=== PATIENT | male | born 1995 | race American Indian/Alaskan Native ===

== ENCOUNTER 2020-11-16 23:01 | Emergency (ER) | payer BC, MEDICAID ==
[2020-11-17 02:29] VITALS: BP 120/75
[2020-11-17 03:52] LABS: Hematocrit 46.5 % (35.5-45.6); Hemoglobin 15.7 gm/dl (11.8-15.2); Mean Corpuscular HGB Conc 34 % (32-34); Mean Corpuscular Volume 95 fl (84-94); Platelet Count 193 K/mm3 (140-440); Red Blood Count 4.91 M/mm3 (3.65-5.03); Red Cell Distribution Width 12.8 % (13.2-15.2)
[2020-11-17 04:00] LABS: Alanine Aminotransferase 16 units/L (7-56); Albumin 5.3 g/dL (3.9-5); BUN/Creatinine Ratio 20; Blood Urea Nitrogen 18 mg/dL (9-20); Calcium 10.7 mg/dL (8.4-10.2); Hemolysis Index 25
[2020-11-17 04:21] LABS: Bilirubin,Urine NEG (Negative); Blood,Urine NEG (Negative); Color,Urine Yellow (Yellow); Mucus,Urine FEW /HPF; Protein,Urine <15 mg/dL mg/dL (Negative); Urobilinogen,Urine < 2.0 mg/dL (<2.0); WBC,Urine < 1.0 /HPF (0.0-6.0)
--- NOTE | 2020-11-17 04:29 | Ultrasound Report ---
ULTRASOUND SCROTUM INDICATION: Bilateral scrotal pain, left greater than right, for one month. COMPARISON None available. FINDINGS: RIGHT TESTICLE: 4.3 x 2.1 x 2.8 cm. Normal echogenicity. Normal color flow. No solid or cystic lesion s. RIGHT EPIDIDYMIS: 1.2 x 1.0 cm. No significant abnormality. LEFT TESTICLE: 4.4 x 2.6 x 3.6 cm. Normal echogenicity. Normal color flow. No solid or cystic lesions . LEFT EPIDIDYMIS: 1.4 x 1.2 cm. No significant abnormality. HYDROCELE: None seen. VARICOCELE: None seen. ADDITIONAL FINDINGS: None. IMPRESSION: 1. No sonographic abnormality of the testes/scrotum. Signer Name: Juan Miramontes MD Signed: 11/17/2020 4:25 AM Workstation Name: [id number]
[2020-11-17 04:48] LABS: RBC Morphology Normal; Total Cells Counted 100
--- NOTE | 2020-11-17 05:25 | Emergency Department Report ---
ED Abdominal Pain HPI - General Chief Complaint: Abdominal Pain Stated Complaint: ABD PAIN Source: patient Mode of arrival: Ambulatory Limitations: No Limitations - History of Present Illness Initial Comments: Patient is a 24-year-old -[place] male with no past medical history presents to the ED with complaint of acute onset persistent mild suprapubic pain with left testicular pain for the last 2 hours. Patient states that he was laying down when he got up and started experiencing left testicular pain and suprapubic pressure. Patient denies hematuria, heavy lifting, fall, traumatic injury, dysuria, urinary frequency and urgency, penile discharge, dizziness, syncope, fever, chills, back pain, chest pain or shortness of breath, nausea and vomiting. MD Complaint: abdominal pain, other (Left testicle pain) -: Sudden, hour(s) (2) Location: periumbilical Radiation: none Migration to: no migration Severity: mild Severity scale (0 -10): 2 Quality: other (chest tightness) Consistency: now resolved Improves With: nothing Worsens With: nothing Associated Symptoms: denies other symptoms. denies: nausea, vomiting, diarrhea, fever, constipation, dysuria, hematemesis, melena, hematuria, anorexia, syncope - Related Data Previous Rx's Medication Instructions Recorded Last Taken Type Naproxen 500 mg PO Q12H PRN #24 tablet 11/17/20 Unknown Rx Allergies Allergy/AdvReac Type Severity Reaction Status Date / Time No Known Allergies Allergy Unverified 11/17/20 02:28 ED Review of Systems ROS: Stated complaint: ABD PAIN Other details as noted in HPI Constitutional: denies: chills, fever Eyes: denies: eye pain, eye discharge, vision change ENT: denies: ear pain, throat pain Respiratory: denies: cough, shortness of breath, wheezing Cardiovascular: denies: chest pain, palpitations Endocrine: no symptoms reported Gastrointestinal: abdominal pain (Suprapubic pain), other. denies: nausea, vomiting, diarrhea Genitourinary: testicular pain (left testicular pain). denies: urgency, dysuria, frequency, hematuria, discharge Musculoskeletal: denies: back pain, joint swelling, arthralgia Skin: denies: rash, lesions Neurological: denies: headache, weakness, paresthesias Psychiatric: denies: anxiety, depression Hematological/Lymphatic: denies: easy bleeding, easy bruising ED Past Medical Hx - Past Medical History Previous Medical History?: No - Surgical History Past Surgical History?: No - Social History Smoking Status: Former Smoker Substance Use Type: Alcohol, Marijuana - Medications Home Medications: Home Medications Medication Instructions Recorded Confirmed Last Taken Type Naproxen 500 mg PO Q12H PRN #24 tablet 11/17/20 Unknown Rx ED Physical Exam - General Limitations: No Limitations General appearance: alert, in no apparent distress - Head Head exam: Present: atraumatic, normocephalic, normal inspection - Eye Eye exam: Present: normal appearance, PERRL, EOMI Pupils: Present: normal accommodation - ENT ENT exam: Present: normal exam, normal orophraynx, mucous membranes moist, TM's normal bilaterally, normal external ear exam - Neck Neck exam: Present: normal inspection, full ROM - Respiratory Respiratory exam: Present: normal lung sounds bilaterally. Absent: respiratory distress, wheezes, rales, rhonchi, chest wall tenderness, accessory muscle use, decreased breath sounds, prolonged expiratory - Cardiovascular Cardiovascular Exam: Present: regular rate, normal rhythm, normal heart sounds. Absent: systolic murmur, diastolic murmur, rubs, gallop - GI/Abdominal GI/Abdominal exam: Present: soft, normal bowel sounds. 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 Dewey present) - Extremities Exam Extremities exam: Present: normal inspection, full ROM, normal capillary refill - Back Exam Back exam: Present: normal inspection, full ROM. Absent: tenderness, CVA tenderness (R), CVA tenderness (L), muscle spasm, paraspinal tenderness, vertebral tenderness - Neurological Exam Neurological exam: Present: alert, oriented X3, CN II-XII intact, normal gait, reflexes normal - Psychiatric Psychiatric exam: Present: normal affect, normal mood, anxious - Skin Skin exam: Present: warm, dry, intact, normal color. Absent: rash ED Course Vital Signs 11/17/20 11/17/20 02:20 05:55 Temperature 98.7 F Pulse Rate 64 54 L Respiratory 18 16 Rate Blood Pressure 120/75 O2 Sat by Pulse 99 99 Oximetry ED Medical Decision Making - Lab Data Result diagrams: 11/17/20 03:10 11/17/20 03:10 - Radiology Data Radiology results: report reviewed, image reviewed [facility] [address] [place] [address] Ultrasound Report Signed Patient: ARACELI LOZANO MR#: [id number] : 1995 Acct:[id number] Age/Sex: 24 / M ADM Date: 11/16/20 Loc: ED Attending Dr: Ordering Physician: HAJA YOUNGBLOOD MD Date of Service: 11/17/20 Procedure(s): US testicular doppler comp Accession Number(s): [id number] cc: ED MD FORD ULTRASOUND SCROTUM INDICATION: Bilateral scrotal pain, left greater than right, for one month. COMPARISON None available. FINDINGS: RIGHT TESTICLE: 4.3 x 2.1 x 2.8 cm. Normal echogenicity. Normal color flow. No solid or cystic lesions. RIGHT EPIDIDYMIS: 1.2 x 1.0 cm. No significant abnormality. LEFT TESTICLE: 4.4 x 2.6 x 3.6 cm. Normal echogenicity. Normal color flow. No solid or cystic lesions. LEFT EPIDIDYMIS: 1.4 x 1.2 cm. No significant abnormality. HYDROCELE: None seen. VARICOCELE: None seen. ADDITIONAL FINDINGS: None. IMPRESSION: 1. No sonographic abnormality of the testes/scrotum. Signer Name: Juan Miramontes MD Signed: 11/17/2020 4:25 AM Workstation Name: [id number] Transcribed By: [place] Dictated By: Juan Miramontes MD Electronically Authenticated By: Juan Miramontes MD Signed Date/Time: 11/17/20424 DD/ 2 TD/TT: Print - Medical Decision Making This is a 24-year-old -[place] male with no past medical history presents to the ED with complaint of acute onset persistent mild suprapubic pain with left testicular pain for the last 2 hours. Patient states that he was laying down when he got up and started experiencing left testicular pain and suprapubic pressure. In the ED, patient is alert and oriented x3 and is not in any distress. Lab test results were reviewed and are all nonactionable. Ivan lei was treated for pain in the ED and testicular ultrasound showed no acute abnormalities including torsion or epididymitis. On reevaluation, patient's pain resolved with medications. Patient was therefore discharged home on pain medications and advised to follow-up with his primary care physician in 5 to 7 days for reevaluation or return to the ED immediately if symptoms get worse. - Differential Diagnosis Epidymitis; UTI; Testicular torsion; STD; kidney stones Critical care attestation.: If time is entered above; I have spent that time in minutes in the direct care of this critically ill patient, excluding procedure time. ED Disposition Clinical Impression: Left testicular pain, Abdominal pain in male Disposition: TO HOME OR SELFCARE Is pt being admited?: No Does the pt Need Aspirin: No Condition: Stable Instructions: Abdominal Pain, Adult, [id number], Testicular Self-Exam, [id number] Additional Instructions: Take medication with food, drink plenty of fluids and follow up your primary care physician in 5-7 days for reevaluation. Return to the ED immediately if symptoms get worse Prescriptions: Naproxen 500 mg PO Q12H PRN #24 tablet PRN Reason: Pain , Severe (7-10) Referrals: [facility] [place] [Provider Group] - 3-5 Days Time of Disposition: 05:25 Print Language: RWANDAN
== END 2020-11-17 05:55 | disposition home or self-care (01) ==
LOC: ED 23:01
DX: R10.9 Unspecified abdominal pain (principal); N50.812 Left testicular pain
CPT/HCPCS: 36415; 80053; 81001; 85007; 85025; 93975; 99284